=== PATIENT | male | born 1950 | race Caucasian/White ===

== ENCOUNTER 2017-11-10 06:45 | Inpatient (IN) | payer MEDICARE, OTHER, SELFPAY ==
[2017-11-06 12:35] VITALS: BMI 37.5
[2017-11-10] VITALS (18 sets, daily range): BP systolic 112–169; BP diastolic 62–97; PULSE 88–103; RESP 9–16; TEMP 36–37.4; O2SAT 92–97; BMI 36.4
--- NOTE | 2017-11-10 07:20 | PM.PREOP ---
Pre-operative Note Interval Note Pre-op Check: History & Physical Reviewed by Physician and Exam Performed
[2017-11-10] MEDS: LACTATED RINGERS 1,000 ML 42 ML IV ×4 (07:57→14:29)
--- NOTE | 2017-11-10 07:57 | SUR.PREOP ---
Dr. Montejo notified pt denied using nasal ointment or body wash
[2017-11-10] MEDS: CEFAZOLIN VIAL 3 GM in SODIUM CHLORIDE 0.9% 100 ML 200 ML IV (07:59)
--- NOTE | 2017-11-10 08:00 | DI.RAD.S_ITS ---
PROCEDURE: XR LUMBAR SPINE 2-3V INDICATIONS: L2-3, L3-4 XLIF L5-S1 TLIF TECHNIQUE: 2 intraoperative views of the lumbar spine were acquired. COMPARISON: None. FINDINGS: Lumbar fusion hardware is present. Alignment is grossly anatomic. IMPRESSION: Intraoperative images obtained during lumbar fusion. Dictated by: Ray Maciel M.D. on 11/10/2017 at 13:03 Approved by: Ray Maciel M.D. on 11/10/2017 at 13:03
[2017-11-10] MEDS: SODIUM CHLORIDE 0.9% 1,000 ML, GENTAMICIN 80 MG IRR (08:30)
[2017-11-10] MEDS: VANCOMYCIN 1,000 MG VIAL 1000 MG TOP (08:31)
[2017-11-10] MEDS: THROMBIN (BOVINE) 5,000 UNIT VIAL 5000 UNIT TOP (08:31)
--- NOTE | 2017-11-10 08:37 | SUR.OPER ---
Right lateral on padded OR table. Head on pillow, gel axillary roll, pillow to support left arm. Legs flexed, pillows between legs, gel pad under down leg and ankle. Multiple passes of 3 inch cloth tape across shoulder, hip, upper and lower legs to secure patient on OR table. Prone on spine table, head in foam head support, padded chest and pelvic supports, gel pad at knees, lower legs supported by pillows; nipples, genitalia and toes free of pressure, arms secured on foam padded arm boards at <90 degrees abduction. Tape over blanket at thigh secured to table.
--- NOTE | 2017-11-10 10:36 | SUR.OPER ---
Noted a pressure sore about the size of a dime in the rectal area when positioning patient, Dr. Montejo aware. Pt also had sores on his left knee, scabbed over.
--- NOTE | 2017-11-10 10:37 | SUR.OPER ---
Two screws and a ambrosio removed from previous surgery in 2002, boilermaker pipe fitter and type unknown.
[2017-11-10] MEDS: BUPIVACAINE 0.5% (PF) 4 ML, MORPHINE-PF 4 MG, BUTORPHANOL 1 MG, fentaNYL 100 MCG INJ (12:41)
--- NOTE | 2017-11-10 13:49 | PM.OP.1 ---
Operative Date/Time/Diagnoses - Date of procedure: 11/10/17 Time of procedure: 13:49 Pre-op diagnosis: Lumbar stenosis with radiculopathy History of lumbar laminectomy and fusion Post-op diagnosis: same Procedure & Clinicians Procedure: L2-3 and L3-4 anterior fusion with cage L2-3 and L3-4 posterior fusion L5-S1 TLIF (post/post innerbody fusion) with cage L2-3 laminectomy Revision laminectomy at L3-4 and L5-S1 Removal of old screws at L4-5 Iliac crest bone graft Microscope Placement of epidural catheter Same procedure as scheduled: Yes Indications: [age] year old male with intractable pain from stenosis. They had failed conservative management and requested operative intervention. Risks and benefits of surgery were discussed and appropriate consents were obtained. Surgeon: Nikunj Montejo Senior [employer] Laboratory Director: Abiola Agee Anesthesia Type: General Operative Notes Findings: none Closure Type: primary Specimen(s): none sent Implants & Drains: Nuvasive Reline screws NuVasive XLIF and TLX cages Applied: catheter Estimated Blood Loss (mL): 50 Procedure in detail: Patient was brought to the operating room and intubated on the table. Time-out was performed. They were then rolled over to the lateral decubitus position with the [id number]. The table was bent and they were taped down in the correct position. X-rays were taken to confirm a true AP and lateral. Preoperative antibiotics were given. The left flank was prepped and draped in standard sterile fashion. Using fluoroscopy, a 3 cm incision was made above the iliac crest. We bluntly dissected down with Metzenbaum scissors and split the 3 abdominal muscle layers. We dissected out the retroperitoneal space and using finger guidance, brought our 1st dilator down to the psoas muscle. Using neuromonitoring and fluoroscopy, we placed it through the psoas onto the L3-4 disc space in an anterior position and gradually pulled the dilator posteriorly along the disc space. We placed our guidewire and measured our depth for the retractor. We then dilated with the next 2 dilators and then placed our retractor over the dilators. Position was confirmed with fluoroscopy and the retractor was locked down to the bar. We opened up the retractor and checked with neuro monitoring. We then placed the caitlyn and again checked with neuro monitoring. The retractor was opened further and the ALL retractor was placed. An annulotomy was performed. We then performed a complete diskectomy with ring curette, pituitary, box osteotome. A Baptiste was advanced across the disc space under fluoroscopy to release the lateral annulus on the opposite side. We then used sequentially larger trials and confirmed under fluoroscopy. An XLIF cage was packed with Osteocell bone graft and impacted into the L3-4 disc space with fluoroscopy for the anterior fusion at this level. The wound was irrigated. The retractor was closed down. The caitlyn was removed. We carefully removed through a tractor with direct visualization to make sure there was no neurovascular or abdominal injury. X-rays were taken. We then went up to L2-3 and repeated the same procedure with neuro monitoring and dilation, placement of a tractor, complete diskectomy and lateral release, and placement of the cage with bone graft for the anterior fusion at L2-3. The retractor was again carefully removed. Final x-rays were taken. The muscle fascia was closed, superficial tissue was closed. The skin was closed. Sterile dressing was placed. The patient was then rolled over on the well-padded prone position on the Giancarlo table. We used his previous incision and opened up approximately 2 cm cephalad.. We dissected down the left sided paraspinal muscles to expose the lamina from L2 through S1. We were very careful around his previous L4-5 laminectomy. We went out laterally over the gutters and exposed his old screws at L4-5. These were removed. We then exposed the transverse processes at L2 through S1 as well as previous fusion mass at L4-5. We then began placing our screws. A bur was used to decorticate the junction of the facet and transverse process. We then advanced a gear shifter down the pedicle using neuro monitoring. We checked with the ball probe to confirm a floor and 4 garcia on the pedicle. We then tapped also with neuro monitoring. We checked again with the ball probe and then placed our screw with neuro monitoring. The screws were placed in this fashion down the left pedicles of L2, L3 and S1. I used his previous L5 screw hole and put a larger screw in. However, the L4 screw was so horizontal and out of place compared to the remainder of the screws that I had made a new pathway down the pedicle in a more vertical fashion. The screws placed in standard fashion. X-rays confirmed positioning of our screws. A temporary ambrosio was placed at the L5-S1 space. We then brought in the microscope. A laminectomy was performed at L5-S1, L3-4, and L2-3 with a bur and Kerrison rongeurs. There is a significant amount of scar tissue from his previous L4-5 laminectomy tracking cephalad and caudally. We had to do extensive dissection through the scar tissue to free up the dura to be able to do our laminectomies at both the L3-4 and L5-S1 levels and hence these are revision surgery levels. The L5-S1 level is separate and distinct from a TLIF approach due to the revision nature of this laminectomy. We carefully depressed the dura to reach to the opposite side and decompress the entire central canal. We cleared out the neural foramen. In the in the ball probe could be placed cephalad and caudally across to the opposite side in the foramen and everything was opened. We then went down to the L5-S1 level and completed the facetectomy and prepped the disc with bipolar to prepare for the TLIF. A scalpel was used to perform an annulotomy. We used a combination of pituitaries, curettes, Sugey and paddles to perform a complete diskectomy and prep of the endplates. The paddle was opened into the largest position we could get it in and the temporary ambrosio was locked down in the open position. We then filled the disc space with bone graft. The TLX cage was inserted into the disc space and expanded under fluoroscopy. Further bone graft was packed into the cage. The wound was copiously irrigated. We took our ambrosio and bent it and locked down the screws. We made a small stab incision over the left PSIS. Several mL of bone marrow were aspirated with a Jamshidi needle. This was mixed with the locally harvested bone graft as well as the remaining Osteocell and placed in the posterolateral gutter for fusion at L2-3, L3-4, and L5-S1. An epidural catheter was primed with 4mL of 0.5% bupivacaine, 100 mcg fentanyl, 4 mg Duramorph, 1 mg Stadol. The dura was depressed under the cephalad lamina with a ball probe and the epidural catheter was gently advanced 6 cm cephalad. The fascia was then closed in layers. The epidural was then injected without resistance. The catheter was pulled. Vancomycin powder was placed in the wound. The superficial and skin were closed. Sterile dressing was placed. The patient was then rolled over, extubated, brought to the recovery room with no complications. Complications: none Condition: stable Disposition: PACU Plan for aftercare: Inpatient. Up with physical therapy. Most likely looking at skilled rehab.
[2017-11-10] MEDS: fentaNYL 100 MCG/2 ML INJ 50 MCG IV ×3 (14:13→15:03)
--- NOTE | 2017-11-10 14:22 | SUR.PHASEI ---
Dr. Hayes notified [facility] [phone]
[2017-11-10] MEDS: hydrOXYzine 50 MG/ML INJ 25 MG IM (14:43)
--- NOTE | 2017-11-10 15:00 | SUR.PHASEI ---
Report called to PETEY Rodriguez. Waiting for shift change
--- NOTE | 2017-11-10 15:47 | SUR.PHASEI ---
Report to Nadya, O2 sat 88-97%RA. 2lnc applied. VS otherwise stable. IV saline locked. Back and flank suzanne drsgs cdi. Small amt of sero-sang fluid to steri-strip. +pp x2, BLE warm, +movement to BLE. Belongings bag x3, glasses and dentures with pt.
[2017-11-10] MEDS: OXYCODONE/ACETAMINOPHEN 5/325 TABLET 2 TAB PO (16:13)
[2017-11-10] MEDS: CEFAZOLIN 2 GM/100 ML FROZ.PIGGY IV ×2 (16:14→23:55)
[2017-11-10] MEDS: LACTATED RINGERS 1,000 ML 125 ML IV ×2 (16:14→23:56)
[2017-11-10] MEDS: INSULIN ASPART 100 UNIT/ML INSULN PEN SUBCUT (17:36)
[2017-11-10] MEDS: HYDROMORPHONE 0.5 MG INJ IV (17:45)
[2017-11-10] MEDS: METHADONE 5 MG TABLET PO ×2 (18:17→22:13)
[2017-11-10] MEDS: DOCUSATE 100 MG CAPSULE PO (20:40)
[2017-11-10] MEDS: GABAPENTIN 600 MG TABLET PO (20:40)
[2017-11-10] MEDS: LISINOPRIL 20 MG TABLET 40 MG PO (20:40)
[2017-11-10] MEDS: TRAZODONE 50 MG TABLET 150 MG PO (22:19)
[2017-11-10] MEDS: OXYCODONE/ACETAMINOPHEN 5/325 TABLET 1 TAB PO (23:54)
[2017-11-11] VITALS (9 sets, daily range): BP systolic 117–157; BP diastolic 61–72; PULSE 83–98; RESP 16–20; TEMP 36.9–37.7; O2SAT 92–97
[2017-11-11] MEDS: OXYCODONE/ACETAMINOPHEN 5/325 TABLET 1 TAB PO ×4 (05:04→21:17)
[2017-11-11 06:28] LABS: Hematocrit 35.7 % (41-53); Hemoglobin 12.2 g/dL (13.5-17.5)
[2017-11-11 06:40] LABS: BUN Creatinine Ratio 21.4 (6-22); Blood Urea Nitrogen 15 mg/dL (9-20); Calcium 8.6 mg/dL (8.4-10.2); Carbon Dioxide 32 mmol/L (22-32); Chloride 96 mmol/L (98-107); Estimated Glomerular Filt Rate > 60.0 mL/min (>60); Glucose 124 mg/dL (80-110); HEMOLYSIS < 15 (0-50); Potassium 3.6 mmol/L (3.4-5.1); Sodium 137 mmol/L (137-145)
--- NOTE | 2017-11-11 08:03 | P.PN_ITS ---
Subjective Date Patient Seen: 11/11/17 Time Patient Seen: 08:01 Interval history: He is doing fairly well. 7/10 pain but easily moving over in bed. Exam Vital Signs (past 8 hours): Vital Signs - 8 hr 3 11/11/17 03:15 11/11/17 06:03 Temperature 98.5 F Pulse Rate 92 H Respiratory Rate 20 Blood Pressure 117/67 Pulse Oximetry 94 96 Pulse Oximetry 96 Oxygen Delivery Method Room Air Oxygen Flow Rate 0 Const Orientation: alert and oriented x3 Back/Spine/Pelvis Other: 5/5 motor BLE. moderate drainage on dressing soaked through at bottom. Objective Labs Result Diagrams: 11/11/17 06:15 11/11/17 06:15 Labs: Laboratory Results - last 24 hr 11/11/17 11/11/17 06:15 06:15 Hgb 12.2 L Hct 35.7 L Sodium 137 Potassium 3.6 Chloride 96 L Carbon Dioxide 32 BUN 15 Creatinine 0.70 Estimated GFR > 60.0 BUN/Creatinine Ratio 21.4 Glucose 124 H Calcium 8.6 Assessment & Plan Post-op Postoperative Procedures Operation Date: 11/10/17 07:45 Actual Procedures Side Surgeon s L2-3, L3-4, L5-S1 TLIF Nikunj Montejo MD p L2-3, L3-4 anterior XLIF Nikunj Montejo MD Normal postop course. Up with PT today. Time Spent With Patient less than 15 minutes
--- NOTE | 2017-11-11 08:56 | CM.DANOTE ---
DCP: assessment: case received and spoke with Dr. Montejo. He states pt will need snf rehab at d/c; expects he will be ready for same 11/13 or >. Met then with pt, introduced self and role. DCP template completed with info currently available. Pt is a 67 year old male who admitted yesterday for a planned spinal surgery. Surgeon: Dr. Montejo Payer: Medicare and [employer] Pt reports he will need the snf rehab before returning home and that he has been at [facility] in past (his sister also lives there as a care home patient). Referral to Rachel/[facility]. Accepts. [facility] faxing initial clinical . Pt is updated. PASRR: will complete. P: [facility] at d/c, Thursday or >
[2017-11-11] MEDS: ATORVASTATIN 20 MG TABLET 40 MG PO (09:42)
[2017-11-11] MEDS: DOCUSATE 100 MG CAPSULE PO ×2 (09:42→21:11)
[2017-11-11] MEDS: ALLOPURINOL 300 MG TABLET PO (09:42)
[2017-11-11] MEDS: METHADONE 5 MG TABLET PO ×3 (09:42→21:13)
[2017-11-11] MEDS: GABAPENTIN 600 MG TABLET PO ×2 (09:42→21:12)
[2017-11-11] MEDS: METFORMIN HCL 500 MG TABLET PO (09:42)
[2017-11-11] MEDS: LISINOPRIL 20 MG TABLET 40 MG PO ×2 (09:45→21:12)
--- NOTE | 2017-11-11 12:10 | PT.IIE ---
Current Diagnoses Spinal stenosis, lumbar region with neurogenic claudication (11/10/17) Other intervertebral disc degeneration, lumbar region (11/10/17) Strain of muscle, fascia and tendon of lower back, initial encounter (11/10/17) Arthrodesis status (11/10/17) Surgery Performed Operation Date: 11/10/17 07:45 Actual Procedures s L2-3, L3-4, L5-S1 TLIF - Nikunj Montejo MD p L2-3, L3-4 anterior XLIF - Nikunj Montejo MD Surgical History (Last Reviewed 11/10/17 @ 17:53 by Nadya Ashley, RN) History of arthroplasty of right knee (Acute) History of lumbar fusion (Acute) History of vasectomy (Acute) Hx of appendectomy (Acute) S/P LASIK surgery of both eyes (Acute) Medical History (Last Reviewed 11/10/17 @ 17:52 by Nadya Ashley RN) Chronic pain (Acute) Depression (Acute) Diabetes (Acute) Easy bruisability (Acute) Edema (Acute) HTN (hypertension) (Acute) Hyperlipidemia (Acute) Left orbit fracture (Acute) Neuropathy (Acute) CATALINA (obstructive sleep apnea) (Acute) PTSD (post-traumatic stress disorder) (Acute) RLS (restless legs syndrome) (Acute) Suicidal ideation (Acute) Physical Therapy Inpatient Evaluation/Re-Eval M1 PT/OT-IP Prior Functional Status Start: 11/10/17 16:48 Freq: NEEDED Status: Active Protocol: Document 11/11/17 11:59 AB (Rec: 11/11/17 12:10 AB [id number]) Medical Review Prior Functional Status Medical History Reviewed Yes Mobility and Gait pt stated that he is modified independent with all mobilities and ambulation using SPC outdoors and occasionally uses it for indoor mobility. Social History Household Members none Living Arrangements House Number of Floors (Floors) One Floor Number of Stairs To Enter/Railing? 8 steps with bilateral rails Home Environment Standard Height Toilet Walk in Shower Home Equipment Hand Held Shower Grab Bars In Shower Employment Status Retired Additional Social History Comment pt sleeps on a lift chair. has borrowed a 4WW. M2 PT-IP Current Condition Start: 11/10/17 16:48 Freq: NEEDED Status: Active Protocol: Document 11/11/17 11:59 AB (Rec: 11/11/17 12:10 AB [id number]) Physical Therapy Current Condition Current Condition Evaluation Date 11/11/17 Treatment Diagnosis s/p TLIF; difficulty in walking Onset Date 11/10/17 Precautions Lumbar Precautions Log Roll No Twisting Limit Bending Lifting Restriction of 10 lbs Gait Belt above Incisional Area M3 PT-IP Subjective Start: 11/10/17 16:48 Freq: NEEDED Status: Active Protocol: Document 11/11/17 11:59 AB (Rec: 11/11/17 12:10 AB [id number]) Subjective Physical Therapy Visit Type Type Initial Evaluation Visit Start Time 11:15 Visit Stop Time 11:50 Total Visit Minutes 35 Number of NEWSPAPER REPORTER Visits 0 Physical Therapy Visit Comments Patient Comments pt agreeable to do therapy Therapy Pain Assessment Pain When Pain Assessed At Rest Pain Present Pain Present Pain Reported Location Lower Back Intensity 5 Scale Used Numeric (1 - 10) Pain Management Techniques Apply Cold Re-positioning Timing of Activity with Medications M4 PT-IP Mobility and Gait Start: 11/10/17 16:48 Freq: NEEDED Status: Active Protocol: Document 11/11/17 11:59 AB (Rec: 11/11/17 12:10 AB [id number]) PT-Bed Mobility Assessment Rolling Type of Rolling Roll to Left Level of Assist Maximal Assistance 1 Person Assistance Supine to Sit Supine to Sit Maximum Assistance Scooting Scooting to Edge of Bed Standby Assistance PT-Transfer Assessment Sit to and From Stand Sit to and from Stand Moderate Assistance Equipment Transfer Assistive Device Gait Belt Front Wheeled Walker Orthotic/Prosthetic Devices or Brace: No Transfers Transfer Destination Chair Transfer Ability Level of Assist Minimal Assistance Gait Assessment Gait Gait Assistance Required: Minimum Assistance Distance (Feet) (feet) 10 Able to Maintain Weight Bearing Status Yes During Gait Assistive Devices Assistive Device Gait Belt Front Wheeled Walker Orthotic/Prosthetic Devices or Brace: No Gait Deviations General Gait Pattern Antalgic Decreased Stride Length Factors Limiting Gait Function Factors Limiting Gait Function Decreased Activity Tolerance Decreased Strength Pain PT-Balance Assessment Sitting Balance and Reactions Static Sitting Balance Ability Good Dynamic Sitting Balance Ability Fair Standing Balance and Reactions Static Standing Balance Ability Fair Dynamic Standing Balance Ability Fair M5 PT-IP Objective Assessments Start: 11/10/17 16:48 Freq: NEEDED Status: Active Protocol: Document 11/11/17 11:59 AB (Rec: 11/11/17 12:10 AB [id number]) Orientation Orientation/Cognition Level of Alertness Alert Orientation Name Age Birthday Month Date Year Day of Week Place Situation Safety Awareness Decreased Safety Awareness Memory Description Short Term Impaired Gross Range of Motion Lower Extremity ROM Assessment Within Functional Limits Strength Lower Extremity Strength Assessment Within Functional Limits Sensation Assessment Sensation Sensation Description Numbness Comments Sensation Comments B feet numbness with L>R Muscle Tone Muscle Tone WNL Yes M6 PT-IP Treatment Start: 11/10/17 16:48 Freq: NEEDED Status: Active Protocol: Document 11/11/17 11:59 AB (Rec: 11/11/17 12:10 AB [id number]) Physical Therapy Treatment Education Education Provided Precautions Weight Bearing Status Post-Op Packet Safety Other Treatments Other Treatment Performed informed nurse regarding dressing and back incision bleeding. M7 PT-IP Assessment and Plan Start: 11/10/17 16:48 Freq: NEEDED Status: Active Protocol: Document 11/11/17 11:59 AB (Rec: 11/11/17 12:10 AB [id number]) PT Summary Assessment and Plan Potential Rehabilitation Potential Fair Status of Condition at Evaluation Evolving Summary Impairments Pain ROM Strength Balance Coordination Sensation Bed Mobility Transfers Gait Activity Tolerance Assessment Summary Pt requiring mod to max A and cues for mobility. pt lives alone and will not have any assistance at home. pt will benefit from SNF rehab. Goals Bed Mobility Goal Standby Assistance Transfer Goal Standby Assistance Gait Goal Standby Assistance Gait Distance 150 Other Goals up/down 8 steps Brails Days to Meet Goals 3 Frequency of Treatment Frequency Of Treatment Twice a Day Treatment Plan Physical Therapy Treatment Plan Bed Mobility Training Transfer Training Gait Training Therapeutic Exercise Balance Retraining Post Op Education Discharge Planning Hot or Cold Pack Neuromuscular Re-ed Coordination Retraining Manual Therapy Other Recommendations and Next Treatment bed mobility, transfers, Focus ambulation Recommendations To Nursing Amount of Assist Needed 1 Person Assist Discharge Recommendations PT Discharge Recommendations SNF Rehab Equipment Needed for Home Before FWW if not going to SNF Discharge Provider Visit Care Team Role Provider Type Nikunj Montejo MD Admit Provider Physician Attending Provider Specialty: Orthopedic Surgery
--- NOTE | 2017-11-11 15:14 | PT.IPTN ---
Current Diagnoses Spinal stenosis, lumbar region with neurogenic claudication (11/10/17) Other intervertebral disc degeneration, lumbar region (11/10/17) Strain of muscle, fascia and tendon of lower back, initial encounter (11/10/17) Arthrodesis status (11/10/17) Surgery Performed Operation Date: 11/10/17 07:45 Actual Procedures s L2-3, L3-4, L5-S1 TLIF - Nikunj Montejo MD p L2-3, L3-4 anterior XLIF - Nikunj Montejo MD Physical Therapy Treatment Note M2 PT-IP Current Condition Start: 11/10/17 16:48 Freq: NEEDED Status: Active Protocol: Document 11/11/17 11:59 AB (Rec: 11/11/17 12:10 AB [id number]) Physical Therapy Current Condition Current Condition Evaluation Date 11/11/17 Treatment Diagnosis s/p TLIF; difficulty in walking Onset Date 11/10/17 Precautions Lumbar Precautions Log Roll No Twisting Limit Bending Lifting Restriction of 10 lbs Gait Belt above Incisional Area M3 PT-IP Subjective Start: 11/10/17 16:48 Freq: NEEDED Status: Active Protocol: Document 11/11/17 13:50 CLB (Rec: 11/11/17 15:14 CLB [email or web address]) Subjective Physical Therapy Visit Type Type Treatment Note Visit Start Time 13:50 Visit Stop Time 14:13 Total Visit Minutes 23 Number of RADON INSPECTOR Visits 1 Physical Therapy Visit Comments Patient Comments pt agreeable to do therapy Therapy Pain Assessment Pain When Pain Assessed At Rest Pain Present Pain Present Pain Reported Location Lower Back Intensity 7 Scale Used Numeric (1 - 10) Pain Management Techniques Apply Cold Re-positioning Timing of Activity with Medications M4 PT-IP Mobility and Gait Start: 11/10/17 16:48 Freq: NEEDED Status: Active Protocol: Document 11/11/17 13:50 CLB (Rec: 11/11/17 15:14 CLB [email or web address]) PT-Bed Mobility Assessment Rolling Type of Rolling Log Rolling Level of Assist Moderate Assistance 1 Person Assistance Sit to Supine Sit to Supine Moderate Assistance PT-Transfer Assessment Sit to and From Stand Sit to and from Stand Minimal Assistance Equipment Transfer Assistive Device Gait Belt Front Wheeled Walker Orthotic/Prosthetic Devices or Brace: No Transfers Transfer Destination Bed Transfer Ability Level of Assist Minimal Assistance Moderate Assistance 1 Person Assistance Comments Mobility Comments Pt improving with mobility needing less assist. Gait Assessment Gait Gait Assistance Required: Minimum Assistance Distance (Feet) (feet) 100 Able to Maintain Weight Bearing Status Yes During Gait Assistive Devices Assistive Device Gait Belt Front Wheeled Walker Orthotic/Prosthetic Devices or Brace: No Gait Deviations General Gait Pattern Antalgic Decreased Stride Length Factors Limiting Gait Function Factors Limiting Gait Function Decreased Activity Tolerance Decreased Strength Pain Comments Gait Comments Pt increased ambulation to ~ 100ft in garsia. PT-Balance Assessment Sitting Balance and Reactions Static Sitting Balance Ability Good Dynamic Sitting Balance Ability Fair Standing Balance and Reactions Static Standing Balance Ability Fair Dynamic Standing Balance Ability Fair M5 PT-IP Objective Assessments Start: 11/10/17 16:48 Freq: NEEDED Status: Active Protocol: Document 11/11/17 11:59 AB (Rec: 11/11/17 12:10 AB [id number]) Orientation Orientation/Cognition Level of Alertness Alert Orientation Name Age Birthday Month Date Year Day of Week Place Situation Safety Awareness Decreased Safety Awareness Memory Description Short Term Impaired Gross Range of Motion Lower Extremity ROM Assessment Within Functional Limits Strength Lower Extremity Strength Assessment Within Functional Limits Sensation Assessment Sensation Sensation Description Numbness Comments Sensation Comments B feet numbness with L>R Muscle Tone Muscle Tone WNL Yes M6 PT-IP Treatment Start: 11/10/17 16:48 Freq: NEEDED Status: Active Protocol: Document 11/11/17 11:59 AB (Rec: 11/11/17 12:10 AB [id number]) Physical Therapy Treatment Education Education Provided Precautions Weight Bearing Status Post-Op Packet Safety Other Treatments Other Treatment Performed informed nurse regarding dressing and back incision bleeding. M7 PT-IP Assessment and Plan Start: 11/10/17 16:48 Freq: NEEDED Status: Active Protocol: Document 11/11/17 13:50 CLB (Rec: 11/11/17 15:14 CLB [email or web address]) PT Summary Assessment and Plan Potential Rehabilitation Potential Fair Status of Condition at Evaluation Evolving Summary Impairments Pain ROM Strength Balance Coordination Sensation Bed Mobility Transfers Gait Activity Tolerance Assessment Summary Pt requiring Min-Mod A with bed mobility and transfers. Pt lives alone and will not have assistance, Pt is not safe to d/c home alone and will need SNF rehab. Goals Bed Mobility Goal Standby Assistance Transfer Goal Standby Assistance Gait Goal Standby Assistance Gait Distance 150 Other Goals up/down 8 steps Brails Days to Meet Goals 3 Frequency of Treatment Frequency Of Treatment Twice a Day Treatment Plan Physical Therapy Treatment Plan Bed Mobility Training Transfer Training Gait Training Therapeutic Exercise Balance Retraining Post Op Education Discharge Planning Hot or Cold Pack Neuromuscular Re-ed Coordination Retraining Manual Therapy Other Recommendations and Next Treatment bed mobility, transfers, Focus ambulation Recommendations To Nursing Amount of Assist Needed 1 Person Assist Discharge Recommendations PT Discharge Recommendations SNF Rehab Equipment Needed for Home Before FWW if not going to SNF Discharge
--- NOTE | 2017-11-11 15:42 | PC.NURSE ---
pt comfortable. Pocket Knife put in our safe and methadone and tylenol sinus sent down to pharmacy. Pt given percocet for pain and routine methadone. BS122 and 139 pt refused his insulin. Comfortable at this time.
[2017-11-11] MEDS: OXYCODONE/ACETAMINOPHEN 5/325 TABLET 2 TAB PO (16:41)
--- NOTE | 2017-11-11 18:12 | PC.NURSE ---
Evening shift Note Distal portion of incision on pt back with sanguineous drainage, leaking from pt dressing, changed pt dressing with placing gauze directly on incision with my and reinforcing with 3 covrsites, pt tolerated well. BG before dinner was 155, pt refused sliding scale insulin. Pt denies nausea, +flatus, +BT's. C/o pain 11/08, pt requesting 2 tabs PRN percocet, PRN percocet given per EMAR. Call light in reach. Pt calling appropriately and making needs known.
[2017-11-11] MEDS: SENNOSIDES 8.6 MG TABLET 17.2 MG PO (21:13)
[2017-11-11] MEDS: TRAZODONE 50 MG TABLET 150 MG PO (21:14)
[2017-11-11] MEDS: ONDANSETRON 4 MG/2 ML INJ IV (22:21)
[2017-11-12] VITALS (7 sets, daily range): BP systolic 136–182; BP diastolic 65–90; PULSE 91–100; RESP 18; TEMP 36.5–37.3; O2SAT 94–98
[2017-11-12] MEDS: METOCLOPRAMIDE 10 MG/2 ML INJ IV ×2 (00:21→08:38)
--- NOTE | 2017-11-12 04:26 | PC.NURSE ---
NOC Note: Pt is A&O, using the call light and making needs known. Pt reported nausea and was given PRN Reglan with good results. Drsg to back is CDI, reminded pt of precautions and log rolling. 1pa with FWW to amb to the BR, pt is independent with rolling in bed.
[2017-11-12] MEDS: ONDANSETRON 4 MG/2 ML INJ IV (05:10)
[2017-11-12] MEDS: OXYCODONE/ACETAMINOPHEN 5/325 TABLET 2 TAB PO ×3 (05:11→19:33)
[2017-11-12] MEDS: ALLOPURINOL 300 MG TABLET PO (08:38)
[2017-11-12] MEDS: METHADONE 5 MG TABLET 10 MG PO (08:38)
[2017-11-12] MEDS: ATORVASTATIN 20 MG TABLET 40 MG PO (08:39)
[2017-11-12] MEDS: LISINOPRIL 20 MG TABLET 40 MG PO ×2 (08:39→21:05)
[2017-11-12] MEDS: GABAPENTIN 600 MG TABLET PO ×2 (08:39→21:05)
[2017-11-12] MEDS: DOCUSATE 100 MG CAPSULE PO ×2 (08:39→21:05)
[2017-11-12] MEDS: METFORMIN HCL 500 MG TABLET PO (08:39)
--- NOTE | 2017-11-12 09:08 | PM.PNPO.1 ---
Subjective Date Patient Seen: 11/12/17 Time Patient Seen: 09:00 Interval history: Patient was seen status post L2-3 and L3-4 anterior (XLIF) and posterior instrumented fusion and laminectomies, L5-S1 instrumented posterior fusion (TLIF) with bone graft and laminectomy, and removal of old L4-5 screws. He is having nausea and vomiting today with somnolence. His pain is well controlled. He appears slightly confused. He has bruising and abrasions over his right eye is unsure of their origin. He is going to SNF tomorrow. Exam Vital Signs (past 8 hours): Vital Signs - 8 hr 11/12/17 03:51 11/12/17 08:27 Temperature 97.9 F 99.1 F Pulse Rate 100 H 93 H Respiratory Rate 18 18 Blood Pressure 178/89 H 182/90 H Pulse Oximetry 95 96 Pulse Oximetry 96 Oxygen Delivery Method Room Air Oxygen Flow Rate 0 Narrative Exam Narrative: Patient is well developed well nourished. No acute distress. Is slightly somnolent. 5/5 motor BLE. moderate drainage on dressing that appears old. Has bruising over his right eye with abrasions underneath the eye. Patient is unsure of what happened. He is neurovascularly intact in both lower extremities. Calves are soft and compressible. Objective Labs Result Diagrams: 11/11/17 06:15 11/11/17 06:15 Assessment & Plan Post-op Postoperative Procedures Operation Date: 11/10/17 07:45 Actual Procedures Side Surgeon s L2-3, L3-4, L5-S1 TLIF Nikunj Montejo MD p L2-3, L3-4 anterior XLIF Nikunj Montejo MD Patient is postop day 2 status post above procedures. He is extremely nauseated will order IV medication to help with this. He has also somnolent so will lower his narcotic dose. Discharge tomorrow to SNF. Time Spent With Patient less than 15 minutes
--- NOTE | 2017-11-12 09:13 | P.PN_ITS ---
Subjective Date Patient Seen: 11/12/17 Time Patient Seen: 09:00 Interval history: Patient was seen status post L2-3 and L3-4 anterior (XLIF) and posterior instrumented fusion and laminectomies, L5-S1 instrumented posterior fusion (TLIF) with bone graft and laminectomy, and removal of old L4- 5 screws. He is having nausea and vomiting today with somnolence. His pain is well controlled. He appears slightly confused. He has bruising and abrasions over his right eye is unsure of their origin. He is going to SNF tomorrow. Exam Vital Signs (past 8 hours): Vital Signs - 8 hr 3 11/12/17 03:51 11/12/17 08:27 Temperature 97.9 F 99.1 F Pulse Rate 100 H 93 H Respiratory Rate 18 18 Blood Pressure 178/89 H 182/90 H Pulse Oximetry 95 96 Pulse Oximetry 96 Oxygen Delivery Method Room Air Oxygen Flow Rate 0 Narrative Exam Narrative: Patient is well developed well nourished. No acute distress. Is slightly somnolent. 5/5 motor BLE. moderate drainage on dressing that appears old. Has bruising over his right eye with abrasions underneath the eye. Patient is unsure of what happened. He is neurovascularly intact in both lower extremities. Calves are soft and compressible. Objective Labs Result Diagrams: 11/11/17 06:15 11/11/17 06:15 Assessment & Plan Post-op Postoperative Procedures Operation Date: 11/10/17 07:45 Actual Procedures Side Surgeon s L2-3, L3-4, L5-S1 TLIF Nikunj Montejo MD p L2-3, L3-4 anterior XLIF Nikunj Montejo MD Patient is postop day 2 status post above procedures. He is extremely nauseated will order IV medication to help with this. He has also somnolent so will lower his narcotic dose. Discharge tomorrow to SNF. Time Spent With Patient less than 15 minutes
--- NOTE | 2017-11-12 12:02 | PT.IPTN ---
Current Diagnoses Spinal stenosis, lumbar region with neurogenic claudication (11/10/17) Other intervertebral disc degeneration, lumbar region (11/10/17) Strain of muscle, fascia and tendon of lower back, initial encounter (11/10/17) Arthrodesis status (11/10/17) Surgery Performed Operation Date: 11/10/17 07:45 Actual Procedures s L2-3, L3-4, L5-S1 TLIF - Nikunj Montejo MD p L2-3, L3-4 anterior XLIF - Nikunj Montejo MD Physical Therapy Treatment Note M2 PT-IP Current Condition Start: 11/10/17 16:48 Freq: NEEDED Status: Active Protocol: Document 11/11/17 11:59 AB (Rec: 11/11/17 12:10 AB [id number]) Physical Therapy Current Condition Current Condition Evaluation Date 11/11/17 Treatment Diagnosis s/p TLIF; difficulty in walking Onset Date 11/10/17 Precautions Lumbar Precautions Log Roll No Twisting Limit Bending Lifting Restriction of 10 lbs Gait Belt above Incisional Area M3 PT-IP Subjective Start: 11/10/17 16:48 Freq: NEEDED Status: Active Protocol: Document 11/12/17 11:58 AB (Rec: 11/12/17 12:02 AB [id number]) Subjective Physical Therapy Visit Type Type Treatment Note Visit Start Time 11:05 Visit Stop Time 11:19 Total Visit Minutes 14 Number of CLOTH PAINTER Visits 0 Physical Therapy Visit Comments Patient Comments pt initially refusing but requested to use the toilet Therapy Pain Assessment Pain When Pain Assessed At Rest Pain Present Pain Present Pain Reported Location Lower Back Intensity 5 Scale Used Numeric (1 - 10) M4 PT-IP Mobility and Gait Start: 11/10/17 16:48 Freq: NEEDED Status: Active Protocol: Document 11/12/17 11:58 AB (Rec: 11/12/17 12:02 AB [id number]) PT-Bed Mobility Assessment Supine to Sit Supine to Sit Moderate Assistance Bedrails PT-Transfer Assessment Sit to and From Stand Sit to and from Stand Minimal Assistance Equipment Transfer Assistive Device Gait Belt Front Wheeled Walker Gait Assessment Gait Gait Assistance Required: Contact Guard Assist Distance (Feet) (feet) 15 Able to Maintain Weight Bearing Status Yes During Gait Assistive Devices Assistive Device Gait Belt Front Wheeled Walker Gait Deviations General Gait Pattern Antalgic Comments Gait Comments pt ambulated from bedside to the toilet using FWW CGA ~ 15 ft. M5 PT-IP Objective Assessments Start: 11/10/17 16:48 Freq: NEEDED Status: Active Protocol: Document 11/11/17 11:59 AB (Rec: 11/11/17 12:10 AB [id number]) Orientation Orientation/Cognition Level of Alertness Alert Orientation Name Age Birthday Month Date Year Day of Week Place Situation Safety Awareness Decreased Safety Awareness Memory Description Short Term Impaired Gross Range of Motion Lower Extremity ROM Assessment Within Functional Limits Strength Lower Extremity Strength Assessment Within Functional Limits Sensation Assessment Sensation Sensation Description Numbness Comments Sensation Comments B feet numbness with L>R Muscle Tone Muscle Tone WNL Yes M6 PT-IP Treatment Start: 11/10/17 16:48 Freq: NEEDED Status: Active Protocol: Document 11/11/17 11:59 AB (Rec: 11/11/17 12:10 AB [id number]) Physical Therapy Treatment Education Education Provided Precautions Weight Bearing Status Post-Op Packet Safety Other Treatments Other Treatment Performed informed nurse regarding dressing and back incision bleeding. M7 PT-IP Assessment and Plan Start: 11/10/17 16:48 Freq: NEEDED Status: Active Protocol: Document 11/12/17 11:58 AB (Rec: 11/12/17 12:02 AB [id number]) PT Summary Assessment and Plan Potential Rehabilitation Potential Fair Summary Impairments Pain ROM Strength Balance Cognition Bed Mobility Transfers Gait Activity Tolerance Progress Towards Goals Slow Progress due to Pain Slow Progress due to Medical Issues Assessment Summary pt continues to require mod A with mobility for bed mobility and transfers and has decrease activity tolerance affecting function. pt will require SNF rehab to improve mobility prior to d/c home. Goals Bed Mobility Goal Standby Assistance Transfer Goal Standby Assistance Gait Goal Standby Assistance Gait Distance 150 Other Goals up/down 8 steps Brails Days to Meet Goals 3 Frequency of Treatment Frequency Of Treatment Twice a Day Treatment Plan Physical Therapy Treatment Plan Bed Mobility Training Transfer Training Gait Training Therapeutic Exercise Balance Retraining Post Op Education Discharge Planning Hot or Cold Pack Neuromuscular Re-ed Coordination Retraining Manual Therapy Other Recommendations and Next Treatment bed mobility, transfers, Focus ambulation Recommendations To Nursing Amount of Assist Needed 1 Person Assist Discharge Recommendations PT Discharge Recommendations SNF Rehab Equipment Needed for Home Before FWW if not going to SNF Discharge
[2017-11-12] MEDS: METHADONE 5 MG TABLET PO ×2 (13:46→21:05)
[2017-11-12] MEDS: hydrOXYzine pamoate 25 MG CAPSULE PO ×2 (14:34→19:33)
--- NOTE | 2017-11-12 15:20 | PT.IPTN ---
Current Diagnoses Spinal stenosis, lumbar region with neurogenic claudication (11/10/17) Other intervertebral disc degeneration, lumbar region (11/10/17) Strain of muscle, fascia and tendon of lower back, initial encounter (11/10/17) Arthrodesis status (11/10/17) Surgery Performed Operation Date: 11/10/17 07:45 Actual Procedures s L2-3, L3-4, L5-S1 TLIF - Nikunj Montejo MD p L2-3, L3-4 anterior XLIF - Nikunj Montejo MD Physical Therapy Treatment Note M2 PT-IP Current Condition Start: 11/10/17 16:48 Freq: NEEDED Status: Active Protocol: Document 11/11/17 11:59 AB (Rec: 11/11/17 12:10 AB [id number]) Physical Therapy Current Condition Current Condition Evaluation Date 11/11/17 Treatment Diagnosis s/p TLIF; difficulty in walking Onset Date 11/10/17 Precautions Lumbar Precautions Log Roll No Twisting Limit Bending Lifting Restriction of 10 lbs Gait Belt above Incisional Area M3 PT-IP Subjective Start: 11/10/17 16:48 Freq: NEEDED Status: Active Protocol: Document 11/12/17 15:20 GGD (Rec: 11/12/17 15:54 GGD [id number]) Subjective Physical Therapy Visit Type Type Treatment Note Visit Start Time 14:55 Visit Stop Time 15:20 Total Visit Minutes 20 Number of CAD INTERN Visits 1 Physical Therapy Visit Comments Patient Comments Pt states that he would like to walk before returning to bed. Therapy Pain Assessment Pain When Pain Assessed At Rest Pain Present Pain Present Pain Reported M4 PT-IP Mobility and Gait Start: 11/10/17 16:48 Freq: NEEDED Status: Active Protocol: Document 11/12/17 15:20 GGD (Rec: 11/12/17 15:54 GGD [id number]) PT-Bed Mobility Assessment Rolling Type of Rolling Log Rolling Level of Assist Minimal Assistance 1 Person Assistance Sit to Supine Sit to Supine Minimal Assistance 1 Person Assistance Bedrails Scooting Scooting to Edge of Bed Standby Assistance PT-Transfer Assessment Sit to and From Stand Sit to and from Stand Contact Guard Assistance Use of Upper Extremities Equipment Transfer Assistive Device Gait Belt Front Wheeled Walker Transfers Transfer Destination Bed Transfer Ability Level of Assist Contact Guard Assistance Use of Upper Extremities Gait Assessment Gait Gait Assistance Required: Contact Guard Assist Distance (Feet) (feet) 175 Assistive Devices Assistive Device Gait Belt Front Wheeled Walker Gait Deviations General Gait Pattern Antalgic Factors Limiting Gait Function Factors Limiting Gait Function Decreased Activity Tolerance Pain M6 PT-IP Treatment Start: 11/10/17 16:48 Freq: NEEDED Status: Active Protocol: Document 11/12/17 15:20 GGD (Rec: 11/12/17 15:54 GGD [id number]) Physical Therapy Treatment Education Education Provided Precautions M7 PT-IP Assessment and Plan Start: 11/10/17 16:48 Freq: NEEDED Status: Active Protocol: Document 11/12/17 15:20 GGD (Rec: 11/12/17 15:54 GGD [id number]) PT Summary Assessment and Plan Summary Assessment Summary Pt improve with mobility. He had better pain control during gait. He needed less assist with mobility. Frequency of Treatment Frequency Of Treatment Twice a Day Treatment Plan Other Recommendations and Next Treatment bed mobility, transfers, Focus ambulation Recommendations To Nursing Amount of Assist Needed 1 Person Assist Discharge Recommendations PT Discharge Recommendations SNF Rehab Equipment Needed for Home Before FWW if not going to SNF Discharge
--- NOTE | 2017-11-12 16:01 | OT.IP.EVAL ---
Current Diagnoses Spinal stenosis, lumbar region with neurogenic claudication (11/10/17) Other intervertebral disc degeneration, lumbar region (11/10/17) Strain of muscle, fascia and tendon of lower back, initial encounter (11/10/17) Arthrodesis status (11/10/17) Surgery Performed Operation Date: 11/10/17 07:45 Actual Procedures s L2-3, L3-4, L5-S1 TLIF - Nikunj Montejo MD p L2-3, L3-4 anterior XLIF - Nikunj Montejo MD Past Medical History (Last Reviewed 11/10/17 @ 17:52 by Nadya Ashley, RN) Chronic pain (Acute) Depression (Acute) Diabetes (Acute) Easy bruisability (Acute) Edema (Acute) HTN (hypertension) (Acute) Hyperlipidemia (Acute) Left orbit fracture (Acute) Neuropathy (Acute) CATALINA (obstructive sleep apnea) (Acute) PTSD (post-traumatic stress disorder) (Acute) RLS (restless legs syndrome) (Acute) Suicidal ideation (Acute) Surgical History (Last Reviewed 11/10/17 @ 17:53 by Nadya Ashley RN) History of arthroplasty of right knee (Acute) History of lumbar fusion (Acute) History of vasectomy (Acute) Hx of appendectomy (Acute) S/P LASIK surgery of both eyes (Acute) Occupational Therapy Inpatient Evaluation/Re-Eval M1 PT/OT-IP Prior Functional Status Start: 11/12/17 15:45 Freq: NEEDED Status: Active Protocol: Document 11/12/17 15:45 PJLisette (Rec: 11/12/17 16:01 PJM [id number]) Medical Review Prior Functional Status Medical History Reviewed Yes Diet/Fluid Consistency Regular Communication WFL Mobility and Gait pt stated that he is modified independent with all mobilities and ambulation using SPC outdoors and occasionally uses it for indoor mobility. Activities of Daily Living and IADL's Pt indep with all self care, IADLS and lives alone. Social History Household Members none Living Arrangements House Number of Floors (Floors) One Floor Number of Stairs To Enter/Railing? 8 steps with bilateral rails Home Environment Standard Height Toilet High Toilet Walk in Shower Home Equipment Four Wheel Walker Hand Held Shower Long Handled Sponge Long Handled Shoe Horn [place] Rafting Guide Grab Bars In Shower Employment Status Retired Additional Social History Comment pt sleeps on a lift chair. has borrowed a 4WW. M2 OT-IP Current Condition Start: 11/12/17 15:45 Freq: Status: Active Protocol: Document 11/12/17 15:45 PJM (Rec: 11/12/17 16:01 [facility] [id number]) Occupational Therapy Current Condition Current Condition Evaluation Date 11/12/17 Treatment Diagnosis s/p multi level lumbar fusion w/decreased self care and functional mobility Post Operative Precautions Lumbar Precautions Log Roll No Twisting Limit Bending Lifting Restriction of 10 lbs Gait Belt above Incisional Area M3 OT- IP Subjective and Pain Start: 11/12/17 15:45 Freq: Status: Active Protocol: Document 11/12/17 15:45 PJM (Rec: 11/12/17 16:01 [facility] [email or web address]) OT- Subjective Occupational Therapy Visit Type Type Initial Evaluation Visit Start Time 14:28 Visit Stop Time 15:05 Total Visit Minutes 37 Occupational Therapy Visit Comments Patient Comments I didn't get any sleep at all last night; too many interruptions. Patient/Caregiver Goals to go home and be independent again OT Pain Assessment Pain When Pain Assessed After Treatment Pain Present Pain Present Pain Reported Location Lower Back Intensity 7 Scale Used Numeric (1 - 10) Description Acute Pain Behaviors Guarding Management Techniques Distraction Re-positioning Timing of Activity with Medications M4 OT- IP ADL's Start: 11/12/17 15:45 Freq: Status: Active Protocol: Document 11/12/17 15:45 PJM (Rec: 11/12/17 16:01 [facility] [id number]) OT [id number] General Evaluation Self-Feeding Ability Independent Comments OT Self-Feeding Comments decreased appetite OT ADL-Grooming Comments OT Grooming Comments pt declined this session OT ADL-Oral Care Comments Oral Care Comments pt declined this session OT ADL-Dressing General Eval Upper Body Dressing Ability Standby Assistance Lower Body Dressing Ability Maximum Assistance Areas Needing Assistance Retrieving/Set-up of Clothing Pants/Shorts Socks Shoes Assistive Devices Dressing Assistive Devices Long Handled Shoe Horn [place] Rafting Guide Sock Aid Comments OT Dressing Comments Began education re: lower body dressing with AED to adhere to lumbar spine precautions. Pt will need wide sock aid; provided ordering information. Pt has user experience developer and long shoe horn at home. OT ADL-Toileting General Evaluation Toileting Ability Standby Assistance Devices Toileting Assistive Devices Grab Bars Raised Toilet Seat Toilet Paper Aid Comments OT Toileting Comments Provided education re: toilet paper aids and ordering information. Pt indep with nhung care after urination seated. Has not yet had BM. OT ADL-Bathing Comments OT Bathing Comments to be assessed as activity toelrance improves M5 OT- IP IADL's Start: 11/12/17 15:45 Freq: Status: Active Protocol: Document 11/12/17 15:45 PJM (Rec: 11/12/17 16:01 PJM [id number]) OT-Instrumental Activities of Daily Living Deficits IADL Deficits Identified Deficits Home Safety Awareness Awareness of Need for Assistance at Home Good Awareness Medication Management Medication Management Comments pt manages own meds at home Money Management Money Management No Deficits Identified Meal Preparation Meal Preparation Comments pt will need assist with grocery shopping Public Records Researcher Public Records Researcher Comments pt will need assist with wicker worker M6 OT- IP Functional Cognition Start: 11/12/17 15:45 Freq: Status: Active Protocol: Document 11/12/17 15:45 PJM (Rec: 11/12/17 16:01 PJM [id number]) Cognitive Factors Limiting Selfcare Function Cognitive Ability Level of Alertness Alert Patient Orientation Name Age Birthday Month Date Year Day of Week Place Situation Attention Span Ability Capable of Focused Attention Capable of Sustained Attention Ability to Follow Commands Able to Follow One Step Commands Memory Description No Deficits Noted OT- Vision and Hearing OT- Hearing Assessment OT- Hearing Assessment WFL M7 OT- IP Mobility and Balance Start: 11/12/17 15:45 Freq: Status: Active Protocol: Document 11/12/17 15:45 PJM (Rec: 11/12/17 16:01 PJM [id number]) OT-Transfer Assessment Sit to and From Stand Sit to and from Stand Contact Guard Assistance Transfers Transfer Ability Contact Guard Assistance Technique Transfer Destination Chair Toilet Transfer Technique Stand Step Pivot Devices Transfer Assistive Devices Gait Belt Front Wheeled Walker Comments Mobility Comments Heavy use of grab bar to arise from high toilet with FWW, as per home setup. OT- Gait Assessment Gait Gait Assistance Required: Contact Guard Assist Assistive Devices Assistive Device Gait Belt Front Wheeled Walker Comments Gait Ability Comments 10 ft in room OT- Balance Assessment Sitting Balance and Reactions Static Sitting Balance Ability Good Dynamic Sitting Balance Ability Good Standing Balance and Reactions Static Standing Balance Ability Good Dynamic Standing Balance Ability Fair M8 OT- IP Objective Assessments Start: 11/12/17 15:45 Freq: Status: Active Protocol: Document 11/12/17 15:45 PJM (Rec: 11/12/17 16:01 PJM [id number]) OT Gross Range of Motion Upper Extremity Range of Motion Assessment Within Functional Limits OT Strength Upper Extremity Strength Assessment Within Functional Limits OT- Coordination Assessment Comments Coordination Comments WFL BUE OT-Muscle Tone Assessment Muscle Tone WNL Yes OT Sensation Assessment Comments Summary Comments Pt denies deficits in BUE's Edema Edema Absent M9 OT- IP Assessment and Plan Start: 11/12/17 15:45 Freq: Status: Active Protocol: Document 11/12/17 15:45 PJM (Rec: 11/12/17 16:01 PJM [id number]) OT Summary Assessment and Plan Potential Rehabilitation Potential Good Analytic Complexity at Evaluation Low Summary OT Impairments Pain Balance Functional Mobility Grooming Dressing Toileting Bathing Toilet Transfers Shower Transfers Assessment Summary Low complexity OT assessment completed with emphasis on self care skills within lumbar spine precautions. Decreased pain control and lack of sleep limiting activity tolerance this AM, but pt improved in PM with increased participation and good effort and participation. Pt not safe to return home alone and short term SNF for rehab planned at discharge. Goals Grooming Goal Standby Assistance Dressing Goal Minimal Assistance Toileting Goal Minimal Assistance Bathing Goal Minimal Assistance Toilet Transfer Goal Contact Guard Assistance Shower Transfer Goal Contact Guard Assistance Patient/Caregiver Education Goal Demonstrate Post-Op Precautions Demonstrate Energy Conservation and Pacing Days to Meet Goals 2 Frequency of Treatment Frequency Of Treatment Once a Day Treatment Plan OT Treatment Plan ADL Training Functional Mobility Patient/Family Education Discharge Planning Discharge Recommendations OT Discharge Recommendations SNF Rehab Home Equipment Needs shower seat-defer selection to next rehab setting
[2017-11-12] MEDS: PROCHLORPERAZINE 10 MG/2 ML VIAL 5 MG IV (16:55)
[2017-11-12] MEDS: BISACODYL 10 MG SUPP PR (16:55)
[2017-11-12] MEDS: MAGNESIUM HYDROXIDE 30 ML UDC PO (21:05)
[2017-11-12] MEDS: SODIUM CHLORIDE 0.9% FLUSH 10 ML IV (21:05)
[2017-11-12] MEDS: SENNOSIDES 8.6 MG TABLET 17.2 MG PO (21:05)
[2017-11-13 00:08] VITALS: BP 150/74; PULSE 86; RESP 16; TEMP 36.9; O2SAT 98
[2017-11-13] MEDS: PROCHLORPERAZINE 10 MG/2 ML VIAL 5 MG IV ×2 (03:03→21:29)
[2017-11-13] MEDS: OXYCODONE/ACETAMINOPHEN 5/325 TABLET 1 TAB PO ×4 (03:36→19:57)
[2017-11-13] MEDS: hydrOXYzine pamoate 25 MG CAPSULE PO ×4 (03:36→19:57)
[2017-11-13 07:31] VITALS: BP 182/79; PULSE 86; RESP 20; TEMP 37.2; O2SAT 96
[2017-11-13] MEDS: LISINOPRIL 20 MG TABLET 40 MG PO ×2 (07:55→21:31)
[2017-11-13] MEDS: DOCUSATE 100 MG CAPSULE PO ×2 (07:55→21:31)
[2017-11-13] MEDS: ALLOPURINOL 300 MG TABLET PO (07:55)
[2017-11-13] MEDS: METHADONE 5 MG TABLET PO ×3 (07:55→21:31)
[2017-11-13] MEDS: ATORVASTATIN 20 MG TABLET 40 MG PO (07:56)
[2017-11-13] MEDS: GABAPENTIN 600 MG TABLET PO ×2 (07:56→21:31)
[2017-11-13] MEDS: METFORMIN HCL 500 MG TABLET PO (07:57)
[2017-11-13] MEDS: SODIUM CHLORIDE 0.9% FLUSH 10 ML IV ×2 (07:57→21:29)
--- NOTE | 2017-11-13 08:13 | P.PN_ITS ---
Subjective Date Patient Seen: 11/13/17 Time Patient Seen: 08:11 Interval history: Pt in bed. BP this am was 182/79. He states he takes HTCZ as home med but has not been getting it in the hospital. He also states his normal BP is around 140/80. Only has a has a small BM. Currently getting stool softeners and milk of mag, was given a suppository yesterday. Is scheduled to be d/c to SNF when medically stable. S/P lami/fusion by Dr. Montejo. PD 3. Exam Vital Signs (past 8 hours): Vital Signs - 8 hr 3 11/13/17 07:31 Temperature 99 F Pulse Rate 86 Respiratory Rate 20 Blood Pressure 182/79 H Pulse Oximetry 96 Pulse Oximetry 96 Oxygen Delivery Method Room Air Oxygen Flow Rate 0 Narrative Exam Narrative: Pt in bed. A&O x3. Back coversite dressings with some drainage at top. Dressings removed. No active drainage but 4x4 dressings below Coversite soaked with bloody drainage. No signs of infection or redness around incision site. 5/5 BLE. Numbness in toes bilaterally. Bruising around right eye. Objective Labs Result Diagrams: 11/11/17 06:15 11/11/17 06:15 Assessment & Plan Post-op (1) Spinal stenosis of lumbar region with radiculopathy: Problem details: Patient is status post lumbar laminectomy/fusion by Dr. Montejo. Postop day 3. Patient is still having some postop drainage from his incision. Dressings changed and reinforced. We will try another suppository today to help with his constipation. Possible discharge to SNF tomorrow. Current Visit: Yes Status: Acute (2) Hypertension: Problem details: Ordered his normal home med of hydrochlorothiazide 25 mg daily. Current Visit: Yes Status: Acute Postoperative Procedures Operation Date: 11/10/17 07:45 Actual Procedures Side Surgeon s L2-3, L3-4, L5-S1 TLIF Nikunj Montejo MD p L2-3, L3-4 anterior XLIF Nikunj Montejo MD Time Spent With Patient 25 - 35 minutes
[2017-11-13] MEDS: hydroCHLOROthiazide 25 MG TABLET PO (09:16)
[2017-11-13] MEDS: BISACODYL 10 MG SUPP PR (09:16)
--- NOTE | 2017-11-13 12:06 | PT.IPTN ---
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) Radiculopathy, lumbar region (11/10/17) Strain of muscle, fascia and tendon of lower back, initial encounter (11/10/17) Arthrodesis status (11/10/17) Surgery Performed Operation Date: 11/10/17 07:45 Actual Procedures s L2-3, L3-4, L5-S1 TLIF - Nikunj Montejo MD p L2-3, L3-4 anterior XLIF - Nikunj Montejo MD Physical Therapy Treatment Note M2 PT-IP Current Condition Start: 11/10/17 16:48 Freq: NEEDED Status: Active Protocol: Document 11/11/17 11:59 AB (Rec: 11/11/17 12:10 AB [id number]) Physical Therapy Current Condition Current Condition Evaluation Date 11/11/17 Treatment Diagnosis s/p TLIF; difficulty in walking Onset Date 11/10/17 Precautions Lumbar Precautions Log Roll No Twisting Limit Bending Lifting Restriction of 10 lbs Gait Belt above Incisional Area M3 PT-IP Subjective Start: 11/10/17 16:48 Freq: NEEDED Status: Active Protocol: Document 11/13/17 12:05 GGD (Rec: 11/13/17 12:06 GGD [id number]) Subjective Physical Therapy Visit Type Type Patient Refusal Notes He states that he having a bad morning and needs to have a BM first. M4 PT-IP Mobility and Gait Start: 11/10/17 16:48 Freq: NEEDED Status: Active Protocol: Document 11/12/17 15:20 GGD (Rec: 11/12/17 15:54 GGD [id number]) PT-Bed Mobility Assessment Rolling Type of Rolling Log Rolling Level of Assist Minimal Assistance 1 Person Assistance Sit to Supine Sit to Supine Minimal Assistance 1 Person Assistance Bedrails Scooting Scooting to Edge of Bed Standby Assistance PT-Transfer Assessment Sit to and From Stand Sit to and from Stand Contact Guard Assistance Use of Upper Extremities Equipment Transfer Assistive Device Gait Belt Front Wheeled Walker Transfers Transfer Destination Bed Transfer Ability Level of Assist Contact Guard Assistance Use of Upper Extremities Gait Assessment Gait Gait Assistance Required: Contact Guard Assist Distance (Feet) (feet) 175 Assistive Devices Assistive Device Gait Belt Front Wheeled Walker Gait Deviations General Gait Pattern Antalgic Factors Limiting Gait Function Factors Limiting Gait Function Decreased Activity Tolerance Pain M5 PT-IP Objective Assessments Start: 11/10/17 16:48 Freq: NEEDED Status: Active Protocol: Document 11/11/17 11:59 AB (Rec: 11/11/17 12:10 AB [id number]) Orientation Orientation/Cognition Level of Alertness Alert Orientation Name Age Birthday Month Date Year Day of Week Place Situation Safety Awareness Decreased Safety Awareness Memory Description Short Term Impaired Gross Range of Motion Lower Extremity ROM Assessment Within Functional Limits Strength Lower Extremity Strength Assessment Within Functional Limits Sensation Assessment Sensation Sensation Description Numbness Comments Sensation Comments B feet numbness with L>R Muscle Tone Muscle Tone WNL Yes M6 PT-IP Treatment Start: 11/10/17 16:48 Freq: NEEDED Status: Active Protocol: Document 11/12/17 15:20 GGD (Rec: 11/12/17 15:54 GGD [id number]) Physical Therapy Treatment Education Education Provided Precautions M7 PT-IP Assessment and Plan Start: 11/10/17 16:48 Freq: NEEDED Status: Active Protocol: Document 11/12/17 15:20 GGD (Rec: 11/12/17 15:54 GGD [id number]) PT Summary Assessment and Plan Summary Assessment Summary Pt improve with mobility. He had better pain control during gait. He needed less assist with mobility. Frequency of Treatment Frequency Of Treatment Twice a Day Treatment Plan Other Recommendations and Next Treatment bed mobility, transfers, Focus ambulation Recommendations To Nursing Amount of Assist Needed 1 Person Assist Discharge Recommendations PT Discharge Recommendations SNF Rehab Equipment Needed for Home Before FWW if not going to SNF Discharge
[2017-11-13 12:23] VITALS: PULSE 77
[2017-11-13 12:59] VITALS: BP 132/63; PULSE 77; RESP 16; TEMP 36.2; O2SAT 94
--- NOTE | 2017-11-13 13:08 | PC.NURSE ---
PAIN WELL CONTROLLED. NO C/O NAUSEA THIS SHIFT. DRSG W/ SHADOW DRAINAGE THIS AM. CHANGED DRSG WITH JABARI PAC PRESENT TO ASSESS. 4X4'S UNDER COVERSITE 60-70 SATURATED. INCISION W/ VERY SCANT ACTIVE DRAINAGE. APPLIED 4X4'S FOLDED X2 ALONG INCISION LINE AND COVERED WITH COVERSITES X2. ADMINISTERED SUPPOSITORY; NO BM. HOME HCTZ RESUMED. BP IMPROVED THIS AFTERNOON.
--- NOTE | 2017-11-13 13:53 | OT.IP.TRT ---
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) Radiculopathy, lumbar region (11/10/17) Strain of muscle, fascia and tendon of lower back, initial encounter (11/10/17) Arthrodesis status (11/10/17) Surgery Performed Operation Date: 11/10/17 07:45 Actual Procedures s L2-3, L3-4, L5-S1 TLIF - Nikunj Montejo MD p L2-3, L3-4 anterior XLIF - Nikunj Montejo MD Occupational Therapy Treatment Note M2 OT-IP Current Condition Start: 11/12/17 15:45 Freq: Status: Active Protocol: Document 11/12/17 15:45 PJM (Rec: 11/12/17 16:01 PJM [id number]) Occupational Therapy Current Condition Current Condition Evaluation Date 11/12/17 Treatment Diagnosis s/p multi level lumbar fusion w/decreased self care and functional mobility Post Operative Precautions Lumbar Precautions Log Roll No Twisting Limit Bending Lifting Restriction of 10 lbs Gait Belt above Incisional Area M3 OT- IP Subjective and Pain Start: 11/12/17 15:45 Freq: Status: Active Protocol: Document 11/13/17 13:52 [facility] (Rec: 11/13/17 13:53 [facility] [id number]) OT- Subjective Occupational Therapy Visit Type Type Treatment Note Notes Checked on Pt in AM for showering and just had a suppository, check at PM, pt asleep, therefore to see pt tomoorow for OT.
--- NOTE | 2017-11-13 14:10 | PT.IPTN ---
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) Radiculopathy, lumbar region (11/10/17) Strain of muscle, fascia and tendon of lower back, initial encounter (11/10/17) Arthrodesis status (11/10/17) Surgery Performed Operation Date: 11/10/17 07:45 Actual Procedures s L2-3, L3-4, L5-S1 TLIF - Nikunj Montejo MD p L2-3, L3-4 anterior XLIF - Niknuj Montejo MD Physical Therapy Treatment Note M2 PT-IP Current Condition Start: 11/10/17 16:48 Freq: NEEDED Status: Active Protocol: Document 11/11/17 11:59 AB (Rec: 11/11/17 12:10 AB [id number]) Physical Therapy Current Condition Current Condition Evaluation Date 11/11/17 Treatment Diagnosis s/p TLIF; difficulty in walking Onset Date 11/10/17 Precautions Lumbar Precautions Log Roll No Twisting Limit Bending Lifting Restriction of 10 lbs Gait Belt above Incisional Area M3 PT-IP Subjective Start: 11/10/17 16:48 Freq: NEEDED Status: Active Protocol: Document 11/13/17 14:10 GGD (Rec: 11/13/17 15:23 GGD [id number]) Subjective Physical Therapy Visit Type Type Treatment Note Visit Start Time 13:45 Visit Stop Time 14:10 Total Visit Minutes 25 Number of POLICY CHANGE CLERKS SUPERVISOR Visits 2 Physical Therapy Visit Comments Patient Comments Pt states that he is ready to get up. Therapy Pain Assessment Pain When Pain Assessed At Rest Pain Present Pain Present Pain Reported M4 PT-IP Mobility and Gait Start: 11/10/17 16:48 Freq: NEEDED Status: Active Protocol: Document 11/13/17 14:10 GGD (Rec: 11/13/17 15:23 GGD [id number]) PT-Bed Mobility Assessment Rolling Type of Rolling Log Rolling Level of Assist Minimal Assistance 1 Person Assistance Supine to Sit Supine to Sit Minimal Assistance Bedrails Scooting Scooting to Edge of Bed Standby Assistance PT-Transfer Assessment Sit to and From Stand Sit to and from Stand Contact Guard Assistance Use of Upper Extremities Equipment Transfer Assistive Device Gait Belt Front Wheeled Walker Transfers Transfer Destination Toilet Transfer Ability Level of Assist Contact Guard Assistance Use of Upper Extremities Comments Mobility Comments Pt transfer to toilet then worked with OT. Gait Assessment Gait Gait Assistance Required: Contact Guard Assist Distance (Feet) (feet) 220 Assistive Devices Assistive Device Gait Belt Front Wheeled Walker Gait Deviations General Gait Pattern Antalgic Factors Limiting Gait Function Factors Limiting Gait Function Decreased Activity Tolerance Pain M5 PT-IP Objective Assessments Start: 11/10/17 16:48 Freq: NEEDED Status: Active Protocol: Document 11/11/17 11:59 AB (Rec: 11/11/17 12:10 AB [id number]) Orientation Orientation/Cognition Level of Alertness Alert Orientation Name Age Birthday Month Date Year Day of Week Place Situation Safety Awareness Decreased Safety Awareness Memory Description Short Term Impaired Gross Range of Motion Lower Extremity ROM Assessment Within Functional Limits Strength Lower Extremity Strength Assessment Within Functional Limits Sensation Assessment Sensation Sensation Description Numbness Comments Sensation Comments B feet numbness with L>R Muscle Tone Muscle Tone WNL Yes M6 PT-IP Treatment Start: 11/10/17 16:48 Freq: NEEDED Status: Active Protocol: Document 11/13/17 14:10 GGD (Rec: 11/13/17 15:23 GGD [id number]) Physical Therapy Treatment Education Education Provided Precautions M7 PT-IP Assessment and Plan Start: 11/10/17 16:48 Freq: NEEDED Status: Active Protocol: Document 11/13/17 14:10 GGD (Rec: 11/13/17 15:23 GGD [id number]) PT Summary Assessment and Plan Summary Assessment Summary Pt improving with mobility and gait. He was able to progress his gait distance. Frequency of Treatment Frequency Of Treatment Twice a Day Treatment Plan Other Recommendations and Next Treatment bed mobility, transfers, Focus ambulation Recommendations To Nursing Amount of Assist Needed 1 Person Assist Discharge Recommendations PT Discharge Recommendations SNF Rehab Equipment Needed for Home Before FWW if not going to SNF Discharge
--- NOTE | 2017-11-13 14:53 | PC.NURSE ---
Pt's dressing was re-dressed twice during the course of this shift. Dressing was saturated with sanguinous fluid. Site has stitches that are well approximated. Erythema and ecchymosis around site.
--- NOTE | 2017-11-13 15:23 | CM.DPC ---
Met with patient at bedside; Patient appears comfortable but sleepy; Introduced myself and role as DC shoe lay out planner; Confirmed DC plan with patient, DC to [facility] when medically stable. Patient agreed, states his sister is a resident of [facility]; Explained to patient that transportation arrangements would be made and he would be notified when transport is scheduled; Patient agreeable to plan and expressed no needs or questions; PASSR completed and clinicals have been faxed; DC likely on Thursday, November 14;
--- NOTE | 2017-11-13 15:31 | OT.IP.TRT ---
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) Radiculopathy, lumbar region (11/10/17) Strain of muscle, fascia and tendon of lower back, initial encounter (11/10/17) Arthrodesis status (11/10/17) Surgery Performed Operation Date: 11/10/17 07:45 Actual Procedures s L2-3, L3-4, L5-S1 TLIF - Nikunj Montejo MD p L2-3, L3-4 anterior XLIF - Nikunj Montejo MD Occupational Therapy Treatment Note M2 OT-IP Current Condition Start: 11/12/17 15:45 Freq: Status: Active Protocol: Document 11/12/17 15:45 PJM (Rec: 11/12/17 16:01 PJM [id number]) Occupational Therapy Current Condition Current Condition Evaluation Date 11/12/17 Treatment Diagnosis s/p multi level lumbar fusion w/decreased self care and functional mobility Post Operative Precautions Lumbar Precautions Log Roll No Twisting Limit Bending Lifting Restriction of 10 lbs Gait Belt above Incisional Area M3 OT- IP Subjective and Pain Start: 11/12/17 15:45 Freq: Status: Active Protocol: Document 11/13/17 13:52 [facility] (Rec: 11/13/17 13:53 [facility] [id number]) OT- Subjective Occupational Therapy Visit Type Type Treatment Note Notes Checked on Pt in AM for showering and just had a suppository, check at PM, pt asleep, therefore to see pt tomoorow for OT. M4 OT- IP ADL's Start: 11/12/17 15:45 Freq: Status: Active Protocol: Document 11/13/17 14:10 [facility] (Rec: 11/13/17 15:30 [facility] [id number]) OT [id number] General Evaluation Self-Feeding Ability Independent Comments OT Self-Feeding Comments decreased appetite OT ADL-Dressing General Eval Upper Body Dressing Ability Standby Assistance Lower Body Dressing Ability Moderate Assistance Areas Needing Assistance Retrieving/Set-up of Clothing Pants/Shorts Socks Shoes Assistive Devices Dressing Assistive Devices Long Handled Shoe Horn Paste Up Artist Sock Aid Comments OT Dressing Comments Pt able to use outreach worker to doff socks and needed assist to atson socks. Assist to initially aston brief over his feet and CGA for balance while pulling up his brief over his hips. OT ADL-Toileting General Evaluation Toileting Ability Standby Assistance Devices Toileting Assistive Devices Grab Bars Raised Toilet Seat Toilet Paper Aid Comments OT Toileting Comments VC to push up form grab bar versus FWW. OT ADL-Bathing Bathing Type Bathing Type Shower General Evaluation Bathing Ability Moderate Assistance Devices Bathing Equipment Long Handled Sponge or Braid Pattern Setter Held Shower Sprayer Shower Chair without Arms Comments OT Bathing Comments Assist to wash/dry back and feet. M5 OT- IP IADL's Start: 11/12/17 15:45 Freq: Status: Active Protocol: Document 11/12/17 15:45 PJ (Rec: 11/12/17 16:01 PJ [id number]) OT-Instrumental Activities of Daily Living Deficits IADL Deficits Identified Deficits Home Safety Awareness Awareness of Need for Assistance at Home Good Awareness Medication Management Medication Management Comments pt manages own meds at home Money Management Money Management No Deficits Identified Meal Preparation Meal Preparation Comments pt will need assist with grocery shopping Credit Products Officer Credit Products Officer Comments pt will need assist with shale miner blasting M6 OT- IP Functional Cognition Start: 11/12/17 15:45 Freq: Status: Active Protocol: Document 11/13/17 14:10 [facility] (Rec: 11/13/17 15:30 [facility] [id number]) Cognitive Factors Limiting Selfcare Function Cognitive Ability Level of Alertness Alert Patient Orientation Name Age Birthday Month Date Year Day of Week Place Situation Attention Span Ability Capable of Focused Attention Capable of Sustained Attention Ability to Follow Commands Able to Follow Multi-Step Commands Memory Description No Deficits Noted Safety Awareness Underestimates Need for Assistance M7 OT- IP Mobility and Balance Start: 11/12/17 15:45 Freq: Status: Active Protocol: Document 11/13/17 14:10 [facility] (Rec: 11/13/17 15:30 [facility] [id number]) OT-Transfer Assessment Sit to and From Stand Sit to and from Stand Standby Assistance Contact Guard Assistance Transfers Transfer Ability Contact Guard Assistance Technique Transfer Destination Bed Chair Shower Stall Transfer Technique Stand Step Pivot Devices Transfer Assistive Devices Gait Belt Front Wheeled Walker Comments Mobility Comments Heavy use of grab bar to arise from high toilet with FWW, as per home setup. OT- Balance Assessment Sitting Balance and Reactions Static Sitting Balance Ability Good Dynamic Sitting Balance Ability Good Standing Balance and Reactions Static Standing Balance Ability Good Dynamic Standing Balance Ability Fair M8 OT- IP Objective Assessments Start: 11/12/17 15:45 Freq: Status: Active Protocol: Document 11/12/17 15:45 PJM (Rec: 11/12/17 16:01 PJM [id number]) OT Gross Range of Motion Upper Extremity Range of Motion Assessment Within Functional Limits OT Strength Upper Extremity Strength Assessment Within Functional Limits OT- Coordination Assessment Comments Coordination Comments WFL BUE OT-Muscle Tone Assessment Muscle Tone WNL Yes OT Sensation Assessment Comments Summary Comments Pt denies deficits in BUE's Edema Edema Absent M9 OT- IP Assessment and Plan Start: 11/12/17 15:45 Freq: Status: Active Protocol: Document 11/13/17 14:10 [facility] (Rec: 11/13/17 15:30 [facility] [id number]) OT Summary Assessment and Plan Potential Rehabilitation Potential Good Analytic Complexity at Evaluation Low Goals Grooming Goal Standby Assistance Patient/Caregiver Education Goal Demonstrate Post-Op Precautions Demonstrate Energy Conservation and Pacing Days to Meet Goals 1 Frequency of Treatment Frequency Of Treatment Once a Day Treatment Plan OT Treatment Plan ADL Training Functional Mobility Patient/Family Education Discharge Planning Discharge Recommendations OT Discharge Recommendations SNF Rehab
[2017-11-13 15:59] VITALS: BP 122/60; PULSE 85; RESP 16; TEMP 36.8; O2SAT 97
[2017-11-13 19:18] VITALS: BP 153/70; PULSE 83; RESP 18; O2SAT 97
[2017-11-13] MEDS: SENNOSIDES 8.6 MG TABLET 17.2 MG PO (21:31)
--- NOTE | 2017-11-13 22:19 | PC.NURSE ---
SHIFT NOTE pt able to have large BM this shift. states great relief and decrease of abdominal discomfort. pt with 1 episode of nausea, medicated with RPN compazine. back dressing CDI, no breakthrough drainage noted. pt verbalized eagerness to d/c tomorrow.
[2017-11-14 00:32] VITALS: BP 153/68; PULSE 83; RESP 16; TEMP 37; O2SAT 97
[2017-11-14 00:51] VITALS: O2SAT 93
[2017-11-14] MEDS: OXYCODONE/ACETAMINOPHEN 5/325 TABLET 1 TAB PO (00:54)
[2017-11-14] MEDS: hydrOXYzine pamoate 25 MG CAPSULE PO ×2 (00:54→04:55)
--- NOTE | 2017-11-14 01:15 | PC.NURSE ---
Addendum entered by Ivy Batres R.N. 11/14/17 05:03: Patient complaining of 8/10 pain so medicated with Percocet 2 tabs + Vistaril. States pain is in back and stomach. When asked, admits to feeling nauseated as well so medicated with Compazine. Original Note: Alert and oriented. Breath sounds CTA with RA sat of 93%. HRR. Denies nausea at present time but has had intermittent nausea previous shifts. BT hypoactive; abdomen is soft but slightly tender to touch. States he does have some abdominal discomfort but has improved since he had a BM yesterday. Denies dysuria, frequency, urgency or incontinence. Independent with bed mobility. SBA + walker when out of bed. Dressings to back are CDI. Complains of 4/10 back pain so medicated with Percocet + Vistaril; declined ice pack. Refuses SCD's. Fall risk score is high as patient reports multiple falls in past 3 months; bed alarm is activated.
[2017-11-14] MEDS: OXYCODONE/ACETAMINOPHEN 5/325 TABLET 2 TAB PO (04:55)
[2017-11-14] MEDS: PROCHLORPERAZINE 10 MG/2 ML VIAL 5 MG IV (04:57)
[2017-11-14] MEDS: SODIUM CHLORIDE 0.9% FLUSH 10 ML IV ×2 (04:57→09:07)
[2017-11-14 08:09] VITALS: BP 143/78; PULSE 86; RESP 18; TEMP 36.7; O2SAT 97
[2017-11-14] MEDS: ATORVASTATIN 20 MG TABLET 40 MG PO (09:05)
[2017-11-14] MEDS: ALLOPURINOL 300 MG TABLET PO (09:06)
[2017-11-14] MEDS: hydroCHLOROthiazide 25 MG TABLET PO (09:06)
[2017-11-14] MEDS: LISINOPRIL 20 MG TABLET 40 MG PO (09:06)
[2017-11-14] MEDS: DOCUSATE 100 MG CAPSULE PO (09:06)
[2017-11-14] MEDS: GABAPENTIN 600 MG TABLET PO (09:06)
[2017-11-14] MEDS: METFORMIN HCL 500 MG TABLET PO (09:06)
--- NOTE | 2017-11-14 09:51 | PC.NURSE ---
Am shift Pt a/o x3, reporting pain contorolled with Percocet/Vistaril. No further nausea today. Required compazine early this AM. No further complaints. Dressing to back has remained c.d.i. CMS+ , hx baseline neuropathy. Eager to d/c to [facility]
--- NOTE | 2017-11-14 10:03 | PM.DS.1 ---
History of Present Illness Date Patient Seen: 11/14/17 Time Patient Seen: 10:05 Chief complaint: [id number] Adal Notes Narrative: Patient's pain is mild. Denies fever or chills. No nausea vomiting. Otherwise without complaints this morning. Discharge Providers Date of admission: 11/10/17 06:45 Consults: 11/06/17 13:54 Consult to Respiratory Therapy Evaluate & Treat Comment: Intolerant to CPAP Physician Instructions: Evaluate and treat 11/10/17 07:34 Consult to Respiratory Therapy Evaluate & Treat Comment: Physician Instructions: Evaluate and treat 11/10/17 15:50 Consult to Discharge Planning Routine Comment: SNF eval Consult to Occupational Therapy Evaluate & Treat Comment: Physician Instructions: Evaluate and treat Consult to Physical Therapy Evaluate & Treat Comment: Physician Instructions: Evaluate and Treat Discharge provider: Matt Pacheco PA-C Summary Discharge Diagnosis: Status post L2-L3 and L3-L4 anterior fusion with cage, L2-L3 and L3-L4 posterior fusion, L5-S1 TLIF with cage, L2-L3 laminectomy, revision laminectomy at L3-L4 and L5-S1, removal of old screws at L4-L5, and iliac crest bone graft. Hospital Course: 67-year-old male with intractable pain from stenosis. Failed conservative management requested operative intervention. Patient admitted to the hospital as mentioned above. Patient underwent the above-mentioned procedures. Patient back in his room recovering well and is in stable condition. Status at Discharge Overall status at discharge: patient is progressing back to baseline Time Spent with Patient Less than 30 minutes Exam Vital Signs (past 8 hours): Vital Signs - 8 hr 11/14/17 08:09 Temperature 98.1 F Pulse Rate 86 Respiratory Rate 18 Blood Pressure 143/78 H Pulse Oximetry 97 Pulse Oximetry 97 Oxygen Delivery Method Room Air Oxygen Flow Rate 0 Narrative Exam Narrative: Pleasant 67-year-old male sitting at bedside no apparent distress. Dressing clean, dry and intact. Neurovascular status is intact to the bilateral lower extremities. Objective Labs Result Diagrams: 11/11/17 06:15 11/11/17 06:15 Discharge Plan Discharge Plan Patient Disposition: [facility] Other facility: [facility] Under care of provider: Dr. Montejo Transportation: [facility] Consult as needed: Dental, Hearing, Mental health, Podiatry and Vision I certify the postop hospital senior care care is medically necessary on a continuing basis for any conditions for which he/ she received care during this hospitalization.: Yes The receiving facility has agreed to accept transfer and provide medical treatment.: Yes Discharge Med Rec/Prescriptions Prescriptions: New hydroxyzine pamoate 25 mg Capsule 25 mg PO Q4HR PRN (Reason: Nausea And Vomiting) Qty: 30 RF: 0 oxycodone-acetaminophen 5-325 mg Tablet 2 tab PO Q4HR PRN (Reason: Pain, Severe) Qty: 60 RF: 0 hydrochlorothiazide 25 mg Tablet 25 mg PO DAILY Qty: 0 RF: 0 oxycodone-acetaminophen 5-325 mg Tablet 1 tab PO Q4HR PRN (Reason: Pain, Moderate) Qty: 60 RF: 0 methadone 5 mg Tablet 5 mg PO TID Qty: 60 RF: 0 Continue atorvastatin 40 mg Tablet 40 mg PO QAM RF: 0 allopurinol 300 mg Tablet 300 mg PO DAILY RF: 0 metformin 500 mg Tablet 500 mg PO BID RF: 0 sildenafil [Viagra] 100 mg Tablet 100 mg PO DAILY PRN (Reason: Sexual Activity) RF: 0 trazodone 100 mg Tablet 150 mg PO BEDTIME RF: 0 gabapentin 300 mg Capsule 600 mg PO BID RF: 0 lisinopril 40 mg Tablet 40 mg PO BID RF: 0 naproxen sodium [Aleve] 220 mg Capsule 2 tab PO PRN PRN (Reason: pain) RF: 0 Discontinued ibuprofen 100 mg Tablet 100 mg PO BID RF: 0 tramadol 300 mg Tablet Extended Release 24 Hr 300 mg PO TID RF: 0 methadone 10 mg Tablet 50 mg PO TID RF: 0 Follow up/Referrals: Nikunj Montejo MD [Physician] - (Follow up 10-14 days) Discharge Health Status Brief summary of current health status: Stable status post L2-L3 and L3-4 anterior fusion with cage, L2-L3 and L3-L4 posterior fusion, L5-S1 TLIF with cage, L2-L3 laminectomy, revision laminectomy at L3-L4 and L5-S1, removal of old screws at L4-L5 Multidrug resistant organism: No MDRO MDRO Verified by culture: No Provider Discharge Instructions Diet: Carb-consistent/Diabetic Liquid consistency: Normal/Thin Food texture: Regular Activity: Limited bending, lifting, twisting Wound Care Dressing: Change as needed. Special Rehabilitation Services Reason for rehabilitation: Post-operative therapy Rehab type: Physical therapy Restrictions to mobility: Limit bending, lifting, twisting Visit Report/Discharge Packet Instructions: DI for Transforaminal Lumbar Interbody Fusion Stand Alone Forms: Surgery Discharge Discharge Data Attending Provider: Nikunj Montejo [place] Date/Time: 11/10/17 06:45 Quality VTE Deep Vein Thrombosis/Pulmonary Embolism Present on Admission: No
--- NOTE | 2017-11-14 10:07 | P.DS_ITS ---
History of Present Illness Date Patient Seen: 11/14/17 Time Patient Seen: 10:05 Chief complaint: [id number] Adal Notes Narrative: Patient's pain is mild. Denies fever or chills. No nausea vomiting. Otherwise without complaints this morning. Discharge Providers Date of admission: 11/10/17 06:45 Consults: 11/06/17 13:54 Consult to Respiratory Therapy Evaluate & Treat Comment: Intolerant to CPAP Physician Instructions: Evaluate and treat 11/10/17 07:34 Consult to Respiratory Therapy Evaluate & Treat Comment: Physician Instructions: Evaluate and treat 11/10/17 15:50 Consult to Discharge Planning Routine Comment: SNF eval Consult to Occupational Therapy Evaluate & Treat Comment: Physician Instructions: Evaluate and treat Consult to Physical Therapy Evaluate & Treat Comment: Physician Instructions: Evaluate and Treat Discharge provider: Matt Pacheco PA-C Summary Discharge Diagnosis: Status post L2-L3 and L3-L4 anterior fusion with cage, L2- L3 and L3-L4 posterior fusion, L5-S1 TLIF with cage, L2-L3 laminectomy, revision laminectomy at L3-L4 and L5-S1, removal of old screws at L4-L5, and iliac crest bone graft. Hospital Course: 67-year-old male with intractable pain from stenosis. Failed conservative management requested operative intervention. Patient admitted to the hospital as mentioned above. Patient underwent the above-mentioned procedures. Patient back in his room recovering well and is in stable condition. Status at Discharge Overall status at discharge: patient is progressing back to baseline Time Spent with Patient Less than 30 minutes Exam Vital Signs (past 8 hours): Vital Signs - 8 hr 3 11/14/17 08:09 Temperature 98.1 F Pulse Rate 86 Respiratory Rate 18 Blood Pressure 143/78 H Pulse Oximetry 97 Pulse Oximetry 97 Oxygen Delivery Method Room Air Oxygen Flow Rate 0 Narrative Exam Narrative: Pleasant 67-year-old male sitting at bedside no apparent distress. Dressing clean, dry and intact. Neurovascular status is intact to the bilateral lower extremities. Objective Labs Result Diagrams: 11/11/17 06:15 11/11/17 06:15 Discharge Plan Discharge Plan Patient Disposition: [facility] Other facility: [facility] Under care of provider: Dr. Montejo Transportation: Cabulance Consult as needed: Dental, Hearing, Mental health, Podiatry and Vision I certify the postop hospital penitentiary care is medically necessary on a continuing basis for any conditions for which he/ she received care during this hospitalization.: Yes The receiving facility has agreed to accept transfer and provide medical treatment.: Yes Discharge Med Rec/Prescriptions Prescriptions: New hydroxyzine pamoate 25 mg Capsule 25 mg PO Q4HR PRN (Reason: Nausea And Vomiting) Qty: 30 RF: 0 oxycodone-acetaminophen 5-325 mg Tablet 2 tab PO Q4HR PRN (Reason: Pain, Severe) Qty: 60 RF: 0 hydrochlorothiazide 25 mg Tablet 25 mg PO DAILY Qty: 0 RF: 0 oxycodone-acetaminophen 5-325 mg Tablet 1 tab PO Q4HR PRN (Reason: Pain, Moderate) Qty: 60 RF: 0 methadone 5 mg Tablet 5 mg PO TID Qty: 60 RF: 0 Continue atorvastatin 40 mg Tablet 40 mg PO QAM RF: 0 allopurinol 300 mg Tablet 300 mg PO DAILY RF: 0 metformin 500 mg Tablet 500 mg PO BID RF: 0 sildenafil [Viagra] 100 mg Tablet 100 mg PO DAILY PRN (Reason: Sexual Activity) RF: 0 trazodone 100 mg Tablet 150 mg PO BEDTIME RF: 0 gabapentin 300 mg Capsule 600 mg PO BID RF: 0 lisinopril 40 mg Tablet 40 mg PO BID RF: 0 naproxen sodium [Aleve] 220 mg Capsule 2 tab PO PRN PRN (Reason: pain) RF: 0 Discontinued ibuprofen 100 mg Tablet 100 mg PO BID RF: 0 tramadol 300 mg Tablet Extended Release 24 Hr 300 mg PO TID RF: 0 methadone 10 mg Tablet 50 mg PO TID RF: 0 Follow up/Referrals: Nikunj Montejo MD [Physician] - (Follow up 10-14 days) Discharge Health Status Brief summary of current health status: Stable status post L2-L3 and L3-4 anterior fusion with cage, L2-L3 and L3-L4 posterior fusion, L5-S1 TLIF with cage, L2-L3 laminectomy, revision laminectomy at L3-L4 and L5-S1, removal of old screws at L4-L5 Multidrug resistant organism: No MDRO MDRO Verified by culture: No Provider Discharge Instructions Diet: Carb-consistent/Diabetic Liquid consistency: Normal/Thin Food texture: Regular Activity: Limited bending, lifting, twisting Wound Care Dressing: Change as needed. Special Rehabilitation Services Reason for rehabilitation: Post-operative therapy Rehab type: Physical therapy Restrictions to mobility: Limit bending, lifting, twisting Visit Report/Discharge Packet Instructions: DI for Transforaminal Lumbar Interbody Fusion Stand Alone Forms: Surgery Discharge Discharge Data Attending Provider: Nikunj Montejo Admit Date/Time: 11/10/17 06:45 Quality VTE Deep Vein Thrombosis/Pulmonary Embolism Present on Admission: No
[2017-11-14] MEDS: METHADONE 5 MG TABLET PO (10:10)
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
== END 2017-11-14 14:19 | DRG 455 ==
PROVIDERS: Admitting Provider Orthopaedic Surgery; Visit Provider Orthopaedic Surgery
PROC: 0SG10A0 Fusion of 2 or more Lumbar Vertebral Joints with Interbody Fusion Device, Anterior Approach, Anterior Column, Open Approach (ICD-10-PCS; principal; 2017-11-10 07:45)
PROC: 0SG10A0 Fusion of 2 or more Lumbar Vertebral Joints with Interbody Fusion Device, Anterior Approach, Anterior Column, Open Approach (ICD-10-PCS; 2017-11-10 07:45)
DX: M48.062 Spinal stenosis, lumbar region with neurogenic claudication (principal); M51.36 Other intervertebral disc degeneration, lumbar region; Z87.891 Personal history of nicotine dependence; I10 Essential (primary) hypertension; M10.9 Gout, unspecified; E66.9 Obesity, unspecified; Z68.36 Body mass index [BMI] 36.0-36.9, adult; E11.9 Type 2 diabetes mellitus without complications; Z79.84 Long term (current) use of oral hypoglycemic drugs; G47.33 Obstructive sleep apnea (adult) (pediatric); G89.29 Other chronic pain; R11.2 Nausea with vomiting, unspecified; R40.0 Somnolence; K59.00 Constipation, unspecified
CPT/HCPCS: 36415; 72100; 76001; 80048; 82962; 85014; 85018; 97116; 97162; 97165; 97530; 97535; C1776; J0330; J0595; J0690; J0780; J1100; J1170; J2250; J2274; J2405; J2704; J2765; J3010; J3410